=== PATIENT | female | born 1990 | race Caucasian/White ===

== ENCOUNTER 2017-06-25 01:13 | Emergency (ER) | payer BC ==
--- NOTE | 2017-06-25 01:26 | EDM.PDOC ---
ED HPI GENERAL MEDICAL PROBLEM - General Chief Complaint: ENT Problem Stated Complaint: SOMETHING STUCK IN THROAT Time Seen by Provider: 06/25/17 01:23 - History of Present Illness INITIAL COMMENTS - FREE TEXT/NARRATIVE: HISTORY AND PHYSICAL: History of present illness: Patient's 26-year-old female who was eating some noodles and chicken tonight and feels like something stuck in her right throat she's been able to talk swallow has no changes in her voice and no other complaints. She states she googled online information that concerned her regarding Crypts in her throat Review of systems: As per history of present illness and below otherwise all systems reviewed and negative. Past medical history: As per history of present illness and as reviewed below otherwise noncontributory. Surgical history: As per history of present illness and as reviewed below otherwise noncontributory. Social history: No reported history of drug or alcohol abuse. Family history: As per history of present illness and as reviewed below otherwise noncontributory. Physical exam: HEENT: Atraumatic, normocephalic, pupils reactive, negative for conjunctival pallor or scleral icterus, mucous membranes moist, throat clear, neck supple, nontender, trachea midline. Lungs: Clear to auscultation, breath sounds equal bilaterally, chest nontender. Heart: S1S2, regular, negative for clicks, rubs, or JVD. Abdomen: Soft, nondistended, nontender. Negative for masses or hepatosplenomegaly. Negative for costovertebral tenderness. Pelvis: Stable nontender. Genitourinary: Deferred. Rectal: Deferred. Extremities: Atraumatic, negative for cords or calf pain. Neurovascular unremarkable. Neuro: Awake, alert, oriented. Cranial nerves II through XII unremarkable. Cerebellum unremarkable. Motor and sensory unremarkable throughout. Exam nonfocal. Diagnostics: Soft tissue neck Therapeutics: None Impression: #1 medical screening exam Definitive disposition and diagnosis as appropriate pending reevaluation and review of above. ED ROS GENERAL - Review of Systems Review Of Systems: ROS reveals no pertinent complaints other than HPI. ED EXAM, GENERAL - Physical Exam Exam: See Below (See dictation) Course - Orders/Labs/Meds Orders: Active Orders 24 hr Category Date Time Status Neck Soft Tissue [CR] Stat Exams 06/25/17 01:20 Ordered Departure - Departure Time of Disposition: 01:25 Disposition: Home, Self-Care 01 Condition: Good Clinical Impression: Encounter for medical screening examination - Discharge Information Referrals: PCP,None [Primary Care Provider] - Additional Instructions: The following information is given to patients seen in the emergency department who are being discharged to home. This information is to outline your options for follow-up care. We provide all patients seen in our emergency department with a follow-up referral. The need for follow-up, as well as the timing and circumstances, are variable depending upon the specifics of your emergency department visit. If you don't have a primary care physician on staff, we will provide you with a referral. We always advise you to contact your personal physician following an emergency department visit to inform them of the circumstance of the visit and for follow-up with them and/or the need for any referrals to a consulting specialist. The emergency department will also refer you to a specialist when appropriate. This referral assures that you have the opportunity for followup care with a specialist. All of these measure are taken in an effort to provide you with optimal care, which includes your followup. Under all circumstances we always encourage you to contact your private physician who remains a resource for coordinating your care. When calling for followup care, please make the office aware that this follow-up is from your recent emergency room visit. If for any reason you are refused follow-up, please contact the [facility] emergency department at and asked to speak to the emergency department charge nurse. [facility] Special[facility] - ENT [address] [place] [id number] Clear liquids 24 hours follow-up with otolaryngology above call for appointment return as needed as discussed - My Orders Last 24 Hours: My Active Orders 06/25/17 01:20 Neck Soft Tissue [CR] Stat - Assessment/Plan Last 24 Hours: My Active Orders 06/25/17 01:20 Neck Soft Tissue [CR] Stat
[2017-06-25 02:21] VITALS: BP 130/81
--- NOTE | 2017-06-26 18:01 | CR ---
EXAM DATE: 06/25/17 PATIENT'S AGE: 26 Patient: RASHAD SALMON Facility: [place], [place] Site . Site : 1990 Study: XRay ST Neck [id number]/4/2017 1:47:11 AM Ordering Physician: Doctor Lee Final Report: INDICATION: Feeling of food stuck in throat TECHNIQUE: Soft tissue neck radiograph 2 views COMPARISON: None FINDINGS: The airway is patent and normal. Epiglottis is normal. The retropharyngeal soft tissues are normal. No definite masses are seen. Mild kyphosis of the cervical spine noted. No radiopaque foreign bodies are seen. IMPRESSION: 1. Unremarkable appearance of the neck soft tissues. 2. No radiopaque foreign bodies are seen. Radiolucent foreign bodies cannot be excluded by radiography. Dictated by: Og Joe MD @ 06/25/2017 01:49:35 (Electronic Signature) Report Signed by Proxy. [id number]
== END 2017-06-25 02:21 | disposition home or self-care (01) ==
LOC: MW.ED 01:13
DX: Z13.9 Encounter for screening, unspecified (principal)
CPT/HCPCS: 70360; 70360-26; 99282; 99284